=== PATIENT | female | born 1990 | race Caucasian/White ===

== ENCOUNTER 2017-04-22 23:33 | Emergency (ER) | payer SELFPAY ==
[2017-04-22 23:40] VITALS: BP 133/88; PULSE 80; RESP 18; TEMP 98.4; O2SAT 96
--- NOTE | 2017-04-22 23:58 | EDPHY ---
H & P Time Seen by Provider: 04/22/17 23:40 HPI/ROS: CHIEF COMPLAINT: Dental pain HISTORY OF PRESENT ILLNESS: 26-year-old female history of poor dentition complaining of right maxillary and mandibular molar pain for the past 24 hours. No fever or chills. No trismus no drooling. No fetid odor or foul taste in mouth. No trauma. No otalgia. PHYSICAL EXAM (Prior to examination, patient consented to physical exam, hands were washed and my usual and customary physical exam procedures followed) 1) GENERAL: Well-developed, well-nourished, alert and oriented. Appears to be in no acute distress. 2) HEAD: Normocephalic 3) HEENT: sclera anicteric. Poor dentition. Floor of mouth soft no evidence of Jeanmarie's angina. Tender to percussion right maxillary and mandibular molars. No evidence of apical abscess. Tonsils are not enlarged with no evidence of peritonsillar abscess. Bilateral ears show no evidence of otitis media or otitis externa. Bilateral mastoid nontender non boggy. Symmetrical faces. Nasolabial fold symmetrical 4) LUNGS: Breathing comfortably. [5) neck: Submandibular and submental spaces are soft no induration. Smoking Status: Heavy smoker Constitutional: Initial Vital Signs Temperature (C) 36.9 C 04/22/17 23:35 Heart Rate 80 04/22/17 23:35 Respiratory Rate 18 04/22/17 23:35 Blood Pressure 133/88 H 04/22/17 23:35 O2 Sat (%) 96 04/22/17 23:35 O2 Delivery Mode Room Air Allergies/Adverse Reactions: No Known Allergies Allergy (Unverified 04/22/17 23:38) Home Medications: Medication Instructions Recorded Amoxicillin Trihydrate 500 mg PO Q8 7 Days 04/22/17 [Amoxicillin 500mg cap] Hydrocodone/APAP 5/325 [Gerton 1 tab PO Q6 PRN #10 tab 04/22/17 5/325 (RX)] MDM/Departure - MDM ED Course/Re-evaluation: Doubt Jeanmarie's angina, doubt deep space infection. Do not think that facial imaging is currently indicated. I offered dental nerve block which she declines ,stating, "I think I would punch you if you did that". She will be discharged with analgesia and antibiotic prescription and recommendations for dental follow -up and my usual and customary dental precautions and instructions. Care and management in consultation with secondary supervising physician Dr Ballard . - Depart Disposition: Home, Routine, Self-Care Clinical Impression: Odontalgia Condition: Good Instructions: Toothache (ED), Hydrocodone/Acetaminophen (By mouth) Additional Instructions: Return to the ER immediately if you cannot swallow, have drooling, fevers, neck stiffness, cannot open your jaw, or any other symptoms that concern you. Prescriptions: Amoxicillin Trihydrate [Amoxicillin 500mg cap] 500 mg PO Q8 7 Days Hydrocodone/APAP 5/325 [Gerton 5/325 (RX)] 1 tab PO Q6 PRN #10 tab PRN Reason: Pain, Severe Referrals: Dental [facility] [Outside] - As per Instructions Dental [facility] [Outside] - As per Instructions [facility] [Outside] - As per Instructions [facility] [Outside] - As per Instructions [facility] [Outside] - As per Instructions
[2017-04-22] MEDS ORDERED: HYDROCOD/APAP 5/325 PREPACK#6 BTL TAKEHOME ONE (23:59)
== END 2017-04-23 00:11 | disposition home or self-care (01) ==
DX: K08.89 Other specified disorders of teeth and supporting structures (principal); F17.200 Nicotine dependence, unspecified, uncomplicated